=== PATIENT | male | born 1940 | race Caucasian/White ===

== ENCOUNTER → 2016-07-22 | Outpatient (CLI) | payer MEDICARE ==
[~2016-07-22] MED LIST: DOXY100T PO; HYPROMELLOSE 0.3 % OPTH GEL 10 GM (0.34 FL OZ) TUBE ONE; PILOCARPINE HCL 2% OPHT SOLN 15 ML BTL ONE; PROPARACAINE HCL 0.5% OPHT SOLN 15 ML BTL ONE; SULF-154 PO; Z.0.NO CURRENT MEDS; prednisoLONE ACETATE 1% OPHT SUSP 5 ML BTL ONE
--- NOTE | 2016-07-22 09:01 | MH ---
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 HISTORY OF PRESENT ILLNESS: This 75-year-old white male is coming through [facility] for the purpose of a laser peripheral iridectomy on the right eye. He was found to have narrow anterior chamber angles with intermittent angle closure in the right eye and elected to have a laser peripheral iridectomy of the right eye at this time. PAST MEDICAL HISTORY: The patient has a history of arthritis in his neck. PAST SURGICAL HISTORY: His surgical history includes that of hernia surgery. MEDICATIONS: His daily medications include: 1. Tylenol. 2. Multivitamins. 3. Co-Q-10. 4. Vitamins for macular degeneration, which he has a history of wet form in the right eye and dry in the left. 5. Avastin injections as well in the right eye for this. 6. Latanoprost eye drops at bedtime in both eyes. 7. Pilocarpine 2% four times a day in the right eye. 8. Istalol eye drops every morning in the right eye to keep it controlled. ALLERGIES: THE PATIENT IS ALLERGIC TO PENICILLIN. SOCIAL HISTORY: Noncontributory. FAMILY HISTORY: Family history is positive for a mother with cataracts and a mother and brother with glaucoma. REVIEW OF SYSTEMS: Noncontributory. OCULAR EXAMINATION: On ocular exam the patient's best corrected visual acuity is 20/70 in each eye. Visual wiley are full to confrontation testing but there are some central field defects due to his macular degeneration on formal field testing. Extraocular muscle exam reveals full versions with orthophoria at distance and near. Pupils are 3 mm equal, round, and reactive to light without afferent defect. Anterior segment examination reveals transillumination of the pupillary margins there are nuclear sclerotic and cortical cataract changes bilaterally. There are narrow anterior chamber angles with potential angle closure on gonioscopy of each eye and the patient was an intermittent angle closure on his last day of examination in the right eye but responded to medication. The intraocular pressure following response was 22 in the right eye and 17 in the left eye by applanation tonometry. Prior to being treated, his pressure in the right eye was at 52. The patient's funduscopic exam revealed sharp disk with cup-to-disk ratio 0.3 bilaterally. An epiretinal membrane and drusen were present as well as retinal pigment epithelial changes in the macula of each eye. A posterior vitreous detachment was present bilaterally. IMPRESSION: 1. Narrow anterior chamber angles with intermittent angle closure right eye. 2. Macular degeneration wet form right eye and dry form left eye. 3. Posterior vitreous detachment both eyes. PLAN: Laser peripheral iridectomy of the right eye through [facility]. MD LUIS Nolen/VINEET /4:41 PM /9:01 AM
--- NOTE | 2016-07-22 12:57 | MP ---
cc: YULIYA ZAZUETA M.D. DATE OF SURGERY: 07/22/2016 PREOPERATIVE DIAGNOSIS: Narrow anterior chamber angle, right eye. POSTOPERATIVE DIAGNOSIS: Narrow anterior chamber angle, right eye. OPERATION: Laser peripheral iridectomy, right eye. ANESTHESIA: Topical. COMPLICATIONS: None. INDICATIONS FOR PROCEDURE: See History and Physical previously dictated. PROCEDURE: The patient arrived at [facility]. Blood pressure started at 182/101, pulse 66, respirations 16.. A drop of Alphagan P and 2% Pilocarpine were instilled in the right eye. A drop of Ophthaine was instilled in the right eye and a laser iridectomy lens was placed on the anterior surface of the right cornea. Peripheral iridectomy was carried out utilizing the following procedure: Argon laser was first utilized forming a crater in the iris. 12 exposures of 400 milliwatts were used with a spot size of 200 microns for 0.2 seconds. Then 41 exposures of 950 milliwatts were used with the spot size of 50 micron, 0.1 second exposure time. Following this, YAG laser was utilized to complete the iridectomy. 11 exposures of 6.7 millijoules of power were utilized by the YAG laser to complete the iridectomy. An adequate opening was seen at this time. The iridectomy lens was removed and the eye was irrigated. A drop of Alphagan P was instilled. The patient was given a prescription for Pred Forte to be utilized four times a day, and has an appointment for follow-up on the first postoperative day in my office. The patient left the [facility] in satisfactory condition. MD LUIS Nolen/SAVANAH /11:39 AM /12:52 PM .4
== END ==
LOC: PHSDC 10:17
PROVIDERS: ATTEND Ophthalmology
DX: H40.031 Anatomical narrow angle, right eye (principal)

== ENCOUNTER → 2017-08-11 | Outpatient (CLI) | payer MEDICARE ==
[~2017-08-11] MED LIST changes: -HYPROMELLOSE 0.3 % OPTH GEL 10 GM (0.34 FL OZ) TUBE ONE; +IBUP200T47 PO; -PILOCARPINE HCL 2% OPHT SOLN 15 ML BTL ONE; -PROPARACAINE HCL 0.5% OPHT SOLN 15 ML BTL ONE; -prednisoLONE ACETATE 1% OPHT SUSP 5 ML BTL ONE
--- NOTE | 2017-08-12 14:16 | EKG ---
Date Performed: 08/11/2017 Time Performed: 12:15:04 PTAGE: 76 years EKG: Sinus rhythm VOLTAGE CRITERIA FOR LVH ABNORMAL ECG NO PREVIOUS TRACING DOCTOR: Olu Ball Interpretating Date/Time 08/12/2017 14:14:43
== END ==
LOC: PHPRE 11:50
PROVIDERS: ATTEND Ophthalmology
DX: Z01.810 Encounter for preprocedural cardiovascular examination (principal)
CPT/HCPCS: 93005

== ENCOUNTER 2017-08-25 13:20 | Emergency (ER) | payer MEDICARE ==
[~2017-08-25] VITALS: Ht 172.7 cm; Wt 76.0 kg
[~2017-08-25 13:20] MED LIST changes: -ACETYLCHOLINE CHL OPHT SOLN 1:100 2 ML VIAL ONE; -CHLORHEXIDINE GLUCONATE 2 % 1 PACK (2 CLOTHS) TOPICAL PRN; -CYCLOPENTOLATE HCL 1% OPHT SOLN 2 ML BTL ONE; -DICLOFENAC SOD 0.1% OPHT SOLN 2.5 ML BTL ONE; -EPINEPHrine HCL PF/SF (1:1000) 1 MG/ML AMP I-OCULAR ONE; -GATIFLOXACIN 0.5% OPHT SOLN 2.5 ML BTL LEFT EYE SCH; -GATIFLOXACIN 0.5% OPHT SOLN 2.5 ML BTL ONE; -HYALURONIDASE/LIDOCAINE/BUPIVACAINE 5 ML SYR LEFT EYE ONE; -INSULIN HUMAN REGULAR 1,000 UNITS/10 ML VIAL SQ PRN; -LACTATED RINGER'S 1000 ML IV PRN; -METOPROLOL TARTRATE 25 MG TAB PO PRN; -MIDAZOLAM HCL 2 MG/2 ML VIAL ONE; -PHENYLEPHRINE HCL 2.5% OPTH SOLN 2 ML BTL ONE; -PILOCARPINE HCL 1% OPHT SOLN 15 ML BTL ONE; -POVIDONE IODINE 5% (ANTISEPSIS KIT) 4 APPLICATIONS EACH NARE PRN; -PROPARACAINE HCL 0.5% OPHT SOLN 15 ML BTL LEFT EYE ONE; -PROPARACAINE HCL 0.5% OPHT SOLN 15 ML BTL ONE; -PROPOFOL 200 MG/20 ML AMP ONE; -SODIUM CHLORID 0.9% 500 ML IV PRN; -TETRACAINE 0.5% OPTH SOLN 4 ML BTL ONE; -TOBRAMYCIN/DEXAMETHASONE OPTH OINT 3.5 GM TUBE ONE; -TROPICAMIDE 1% OPHT SOLN 15 ML BTL ONE; -VISCOAT OPHT IRRIG SOLN 0.75 ML SYRINGE ONE; -acetaZOLAMIDE SEQUELS 500 MG SUSTAINED RELEASE CAP ONE
[2017-08-25 13:25] VITALS: BP 215/104; PULSE 83; RESP 18; TEMP 97.5; O2SAT 96
--- NOTE | 2017-08-25 13:43 | PD ---
HPI Chief Complaint: Complaint Time Seen by Provider: 13:36 Travel History International Travel<30 days: No Contact w/Intl Traveler<30days: No Traveled to known affect area: No History of Present Illness HPI This 76-year-old male is complaining of inability to urinate. He had eye surgery this morning with Dr. sainz. He was apparently given Diamox. He has been unable to pass any urine since his surgery. He had is not aware of any history of prostate trouble he is never had to see a urologist. PFSH Past Medical History Cardiovascular Problems: No Genitourinary: No Hiatal Hernia: No Musculoskeletal: Yes (ARTHRITIS NECK) Neurologic: No Respiratory: Yes (ALLERGIES) Past Surgical History Abdominal Surgery: Yes (RIGHT INGUINAL HERNIA REPAIR) AICD: No Ear Surgery: No Eye Surgery: No Genitourinary Surgery: No Joint Replacement: No Oral Surgery: No Pacemaker: No Other Surgery: Yes (HERNIA REPAIR) Social History Alcohol Use: Yes (OCCASSIONAL) Tobacco Use: No Substance Use: No Allergies-Medications (Allergen,Severity, Reaction): Coded Allergies: Penicillins (Verified Allergy, Severe, Swelling, 08/25/17) Reported Meds & Prescriptions Reported Meds & Active Scripts Active No Active Prescriptions or Reported Medications Review of Systems General / Constitutional: No: Fever, Chills Eyes: Positive: Other HENT: No: Headaches (Surgery today) Gastrointestinal: Positive: Abdominal Pain Genitourinary: Positive: Decreased Urinary Output Neurologic: No: Weakness, Dizziness Physical Exam Narrative GENERAL: Well-developed male SKIN: Focused skin assessment warm/dry. HEAD: Atraumatic. Normocephalic. EYES: Is a patch on his left eye ENT: No nasal bleeding or discharge. Mucous membranes pink and moist. NECK: Trachea midline. No JVD. CARDIOVASCULAR: Regular rate and rhythm. No murmur appreciated. RESPIRATORY: No accessory muscle use. Clear to auscultation. Breath sounds equal bilaterally. GASTROINTESTINAL: Abdomen soft, suprapubic tenderness MUSCULOSKELETAL: No obvious deformities. No clubbing. No cyanosis. No edema. NEUROLOGICAL: Awake and alert. No obvious cranial nerve deficits. Motor grossly within normal limits. Normal speech. PSYCHIATRIC: Appropriate mood and affect; insight and judgment normal. Data Data Last Documented VS Vital Signs Date Time Temp Pulse Resp B/P (MAP) Pulse Ox O2 Delivery O2 Flow Rate FiO2 08/25/17 14:17 69 16 167/78 (107) 98 Room Air 08/25/17 13:25 97.5 Orders Orders Urinalysis - C+S If Indicated (08/25/17 13:36) Urinary Catheter Insert/Apply (08/25/17 13:36) Labs Laboratory Tests Test 08/25/17 14:00 Urine Color YELLOW Urine Turbidity CLEAR Urine pH 7.5 Urine Specific [place] 1.010 Urine Protein NEG mg/dL Urine Glucose (UA) NEG mg/dL Urine Ketones NEG mg/dL Urine Occult Blood SMALL Urine Nitrite NEG Urine Bilirubin NEG Urine Urobilinogen 0.2 MG/DL Urine Leukocyte Esterase NEG Urine WBC 0-2 /hpf Urine Amorphous Sediment FEW Microscopic Urinalysis Comment CULT NOT INDICATED MDM Medical Decision Making Medical Screen Exam Complete: Yes Emergency Medical Condition: Yes Medical Record Reviewed: Yes Differential Diagnosis Differential includes urinary retention Narrative Course Nance was inserted and about 900 cc of clear urine obtained. Patient will be released with a leg bag in place to have it removed in 1 day Diagnosis Primary Impression: Urinary retention Additional Instructions: Remove Nance catheter tomorrow Scripts No Active Prescriptions or Reported Meds Disposition: 01 DISCHARGE HOME Condition: Stable Austin Carlson MD August 25, 2017 13:43
[2017-08-25 14:05] LABS: BILIRUBIN, URINE NEG (NEG); BLOOD, URINE SMALL (NEG); GLUCOSE,URINE NEG (NEG); KETONE, URINE NEG (NEG); NITRITE,URINE NEG (NEG); PH, URINE 7.5 (5.0-8.5); URINE COLOR YELLOW (YELLW/STRAW); URINE LEUKOCYTE ESTERASE NEG (NEG)
[2017-08-25 14:14] LABS: AMORPHOUS SEDIMENT, URINE FEW; WBC, URINE 0-2 /hpf (0-5)
[2017-08-25 14:17] VITALS: BP 167/78; PULSE 69; RESP 16; O2SAT 98
[2017-08-25 15:08] VITALS: BP 140/75
== END 2017-08-25 15:20 | disposition home or self-care (01) ==
LOC: PHED 13:20
DX: R33.9 Retention of urine, unspecified (principal); M19.90 Unspecified osteoarthritis, unspecified site; Z88.0 Allergy status to penicillin
CPT/HCPCS: 51702; 81001

== ENCOUNTER → 2017-08-25 | Outpatient (CLI) | payer MEDICARE ==
--- NOTE | 2017-08-13 13:24 | MH ---
cc: Grant Medrano MD DATE OF ADMISSION: 08/25/2017 ADMISSION DIAGNOSIS: Cataract, left eye. HISTORY OF PRESENT ILLNESS: This 76-year-old white male is coming to [facility] for the purpose of a lens extraction of the left eye with intraocular lens implant under local anesthesia. He has noticed decreasing visual acuity interfering with his daily activities and elected to have the above procedure. His best corrected visual acuity in room light is 20/70 -1 in the right eye and 20/100 +1 in the left. PAST MEDICAL HISTORY: Patient has a history of active wet macular degeneration in the right eye and dry macular degeneration in the left eye with subfoveal involvement. He also has a history of arthritis in the neck. He also is a glaucoma suspect on medications. PAST SURGICAL HISTORY: Positive for hernia surgery, laser peripheral iridectomy in the right eye. DAILY MEDICATIONS: 1. Ibuprofen. 2. Multivitamins. 3. CoQ10. 4. Macular degeneration vitamins. 5. He gets Avastin injections in his right eye. 6. The patient takes Simbrinza eye drops twice a day in his right eye. 7. Latanoprost eye drops at bedtime in each eye. ALLERGIES: HE IS ALLERGIC TO PENICILLIN. SOCIAL HISTORY: He does not smoke and has a few alcoholic beverages a week, beer or wine. FAMILY HISTORY: Positive for mother with cataracts and glaucoma and a brother with glaucoma. REVIEW OF SYSTEMS: HEAD: Patient denies severe headaches, dizziness or recent head injury. EARS: Patient denies hearing loss, ear pain, discharge. The patient has a history of ringing in his ears at times. NOSE: Patient denies nasal discharge, obstruction or frequent colds. MOUTH AND THROAT: Patient denies soreness of the mouth or tongue, bleeding gums, trouble swallowing, changes in voice or sore throat. NECK: He has had some neck problems with arthritis causing some discomfort and limitation of movement in the neck. CARDIOPULMONARY SYSTEM: Patient denies shortness of breath, orthopnea, chronic cough, sputum production, hemoptysis, chest pain, wheezing, palpitations or light-headedness. GI SYSTEM: Patient denies poor appetite, nausea, vomiting, abdominal pain, ulcers, change in bowel habits. He has a history of hemorrhoids. SYSTEM: The patient denies dysuria, change in urine color. He has urinary frequency sometimes secondary to fluid intake. NERVOUS SYSTEM: Patient denies convulsions, vertigo, stroke, numbness or weakness. PHYSICAL EXAMINATION: VITAL SIGNS: Blood pressure 140/98, pulse is 76, respirations 20. HEENT: Head is normocephalic, atraumatic. Nose is without rhinorrhea. Throat clear. NECK: Supple. CHEST: Clear. HEART: Regular rate and rhythm. ABDOMEN: Without tenderness. EXTREMITIES: Without edema. NEUROLOGIC: Within normal limits. Mental status within normal limits. EYE EXAM: The patient's best corrected visual acuity in room light is 20/70 -1 in the right eye and 20/100 +1 in the left eye. Visual wiley are full to confrontation testing. Extraocular muscle exam reveals full versions with orthophoria at distance and near. Pupils are 2.5 mm, equal, round, reactive to light, without afferent defect. Anterior segment examination reveals a patent peripheral iridectomy in the right eye and nuclear sclerotic and cortical cataract as well as early posterior subcapsular cataract in the left eye with a nuclear sclerotic and cortical cataract in the right. Intraocular pressure is 21 in the right eye and 19 in the left by applanation tonometry. Dilated fundus exam revealed sharp disk with cup-to-disc ratio 0.3 bilaterally. An epiretinal membrane is present in the macula of each eye. There are drusen and retinal pigment epithelial changes and atrophic areas in the macula of each eye. A posterior vitreous detachment is present bilaterally. IMPRESSION: 1. Bilateral cataracts. 2. Macular degeneration, wet form right eye, dry form left. 3. Posterior vitreous detachment both eyes. 4. Epiretinal membrane both eyes. 5. Glaucoma suspect on medication. PLAN: Lens extraction of the left eye with intraocular lens implant under local anesthesia through [facility]. Iris retractors may be used in this patient as the pupil does not dilate extremely well. The patient has been cleared medically. He has been counseled as to the risks, benefits and alternatives and elected to proceed. I feel the cataract surgery will improve the quality of life and activities of daily living in this patient. MD LUIS Nolen/NIKOLAS , 12:49 PM , 01:23 PM
[~2017-08-25] VITALS: Ht 170.2 cm; Wt 73.0 kg
[~2017-08-25] MED LIST changes: +ACETYLCHOLINE CHL OPHT SOLN 1:100 2 ML VIAL ONE; +CHLORHEXIDINE GLUCONATE 2 % 1 PACK (2 CLOTHS) TOPICAL PRN; +CYCLOPENTOLATE HCL 1% OPHT SOLN 2 ML BTL ONE; +DICLOFENAC SOD 0.1% OPHT SOLN 2.5 ML BTL ONE; -DOXY100T PO; +EPINEPHrine HCL PF/SF (1:1000) 1 MG/ML AMP I-OCULAR ONE; +GATIFLOXACIN 0.5% OPHT SOLN 2.5 ML BTL LEFT EYE SCH; +GATIFLOXACIN 0.5% OPHT SOLN 2.5 ML BTL ONE; +HYALURONIDASE/LIDOCAINE/BUPIVACAINE 5 ML SYR LEFT EYE ONE; +INSULIN HUMAN REGULAR 1,000 UNITS/10 ML VIAL SQ PRN; +LACTATED RINGER'S 1000 ML IV PRN; +METOPROLOL TARTRATE 25 MG TAB PO PRN; +MIDAZOLAM HCL 2 MG/2 ML VIAL ONE; +PHENYLEPHRINE HCL 2.5% OPTH SOLN 2 ML BTL ONE; +PILOCARPINE HCL 1% OPHT SOLN 15 ML BTL ONE; +POVIDONE IODINE 5% (ANTISEPSIS KIT) 4 APPLICATIONS EACH NARE PRN; +PROPARACAINE HCL 0.5% OPHT SOLN 15 ML BTL LEFT EYE ONE; +PROPARACAINE HCL 0.5% OPHT SOLN 15 ML BTL ONE; +PROPOFOL 200 MG/20 ML AMP ONE; +SODIUM CHLORID 0.9% 500 ML IV PRN; -SULF-154 PO; +TETRACAINE 0.5% OPTH SOLN 4 ML BTL ONE; +TOBRAMYCIN/DEXAMETHASONE OPTH OINT 3.5 GM TUBE ONE; +TROPICAMIDE 1% OPHT SOLN 15 ML BTL ONE; +VISCOAT OPHT IRRIG SOLN 0.75 ML SYRINGE ONE; -Z.0.NO CURRENT MEDS; +acetaZOLAMIDE SEQUELS 500 MG SUSTAINED RELEASE CAP ONE
[2017-08-25] MEDS: CYCLOPENTOLATE HCL 1% OPHT SOLN 2 ML BTL LEFT EYE SCH ×4 (07:50→07:59)
[2017-08-25] MEDS: DICLOFENAC SOD 0.1% OPHT SOLN 2.5 ML BTL LEFT EYE SCH ×4 (07:50→07:59)
[2017-08-25] MEDS: TROPICAMIDE 1% OPHT SOLN 15 ML BTL LEFT EYE SCH ×4 (07:50→07:59)
[2017-08-25] MEDS: PHENYLEPHRINE HCL 2.5% OPTH SOLN 2 ML BTL LEFT EYE SCH ×4 (07:50→07:59)
[2017-08-25 08:00] VITALS: PULSE 65
[2017-08-25 08:35] VITALS: PULSE 67
[2017-08-25 10:44] VITALS: TEMP 98.8
[2017-08-25 11:07] VITALS: BP 146/84; PULSE 68; RESP 16; O2SAT 99
--- NOTE | 2017-08-25 12:28 | MP ---
cc: Grant Medrano MD DATE OF OPERATION: 08/25/2017 PREOPERATIVE DIAGNOSIS: Cataract, left eye. POSTOPERATIVE DIAGNOSIS: Cataract, left eye. OPERATION: Extracapsular cataract extraction with posterior chamber intraocular lens implant by phacoemulsification, left eye. SURGEON: Grant Medrano MD ANESTHESIA: Local. COMPLICATIONS: None. INDICATIONS: See history and physical previously dictated. OPERATIVE PROCEDURE: The patient had adequate retrobulbar and eyelid blocks administered in the holding area and was brought to the operating room. The left eye was prepped and draped in the usual sterile ophthalmic manner. A lid speculum was inserted in the left eye. A 4-0 silk bridle suture was placed through the conjunctiva near the superior rectus muscle and it was tagged to the drape. A fornix-based conjunctival flap was prepared spanning approximately 5 mm in width. Hemostasis was obtained with wet-field cautery. A 3.5 mm groove was made 1 mm from the limbus and dissected up to the limbus in the form of a scleral pocket incision. A stab incision was then made at the 5 o'clock position. Viscoelastic was injected into the anterior chamber. In order to maintain an adequately dilated pupil, it was elected to use iris retractors in this case. Stab incisions were made at the 4 o'clock, 6 o'clock, 8 o'clock, 10 o'clock and 1 o'clock positions. Iris retractors were then inserted through the stab incisions in the peripheral cornea and positioned to enlarge the size of the pupil. The anterior chamber was entered with a 2.75 mm keratome through the scleral pocket incision. A 360 degree continuous curvilinear capsulorrhexis was then performed. Hydrodissection was utilized to divide the nucleus into inner and outer components and to separate the cortex from the capsule. Phacoemulsification was then utilized to remove the nucleus. The outer nuclear layer was removed with irrigation and aspiration and short bursts of ultrasound as necessary. The cortex was removed with the irrigation-aspiration handpiece. The posterior capsule was polished with the capsule polisher. Viscoelastic was injected into the capsular bag. The intraocular lens was inspected and found to be in good condition. The lens utilized was Biju, model #SA60AT with a power of +21.5 diopters. The lens was inserted into the capsular bag. The five iris retractors were removed. The viscoelastic in the anterior chamber was then removed with the irrigation-aspiration hand piece. Viscoelastic was also removed from beneath the intraocular lens. The anterior chamber was filled with Miochol-E through the stab incision and pressurized. The wound was checked for leaks at this pressure and normalized pressure and there were none. The 4-0 bridle suture was removed. The conjunctival flap was brought down over the wound and secured with cautery. Pilocarpine 2% eye drops were instilled topically. The lid speculum was removed. TobraDex ophthalmic ointment was applied. The eye was double patched and shielded. The patient tolerated the procedure well and left the Operating Room in satisfactory condition. MD LUIS Nolen/TL , 11:30 AM , 12:28 PM
== END ==
LOC: PHSDC 06:58
PROVIDERS: ATTEND Ophthalmology
DX: H26.9 Unspecified cataract (principal); H35.3120 Nonexudative age-related macular degeneration, left eye, stage unspecified; H35.3210 Exudative age-related macular degeneration, right eye, stage unspecified; H43.813 Vitreous degeneration, bilateral
CPT/HCPCS: 00142; 66984; J0171; J2250; J7040; V2632